=== PATIENT | female | born 1960 | race Caucasian/White ===

== ENCOUNTER 2020-09-16 17:32 | Emergency (ER) | payer BC ==
[~2020-09-16] VITALS: Ht 165.1 cm; Wt 83.0 kg
[2020-09-16 17:37] VITALS: BP 127/75
[2020-09-16] MEDS ORDERED: HYDROcodone/acetaminophen 5mg/325mg tablet PO ONE (17:40)
[2020-09-16] MEDS ORDERED: HYDR-3965 PO (17:56)
== END 2020-09-16 19:05 | disposition home or self-care (01) ==
LOC: ER 17:33
DX: S52.591A Other fractures of lower end of right radius, initial encounter for closed fracture (principal); W01.0XXA Fall on same level from slipping, tripping and stumbling without subsequent striking against object, initial encounter; Y93.89 Activity, other specified; Y92.89 Other specified places as the place of occurrence of the external cause; Y99.8 Other external cause status
CPT/HCPCS: 29125; 73110; 99284